=== PATIENT | male | born 1975 | race American Indian/Alaskan Native ===

== ENCOUNTER 2017-11-29 14:15 | Emergency (ER) | payer SELFPAY ==
[2017-11-29 15:14] VITALS: BP 123/87
--- NOTE | 2017-11-29 16:30 | Cat Scan Report ---
FINAL REPORT PROCEDURE: CT HEAD/BRAIN WO CON TECHNIQUE: Computerized tomography of the head was performed without contrast material. HISTORY: fall with head injury COMPARISON: None FINDINGS: Brain volume is age appropriate. There is no intra or extra-axial hemorrhage. There is no CT evident acute infarction. There is no remote infarct. There is no hydrocephalus. There is no gross mass lesion or leptomeningeal abnormality given limitation of lack of IV contrast. The skull base and calvarium are intact. Subtle chronic sinusitis is present most conspicuously of the maxillary sinuses. IMPRESSION: No CT evident acute intracranial process. Subtle chronic sinusitis.
--- NOTE | 2017-11-29 21:12 | XRay Report ---
FINAL REPORT PROCEDURE: XR SPINE LUMBOSACRAL 2-3V TECHNIQUE: Lumbar spine radiographs, frontal and lateral views. CPT 17809 HISTORY: fall COMPARISON: No prior studies are available for comparison. FINDINGS: Vertebral alignment and height are within normal limits. Narrowing of the intervertebral disc spaces identified at L5-S1. An acute fracture is not identified. Pre and paravertebral soft tissues are within normal limits. Incidental note is made of a grossly dilated loop of colon with a maximal diameter of 15 centimeters. Air-fluid levels are noted in this loop.. IMPRESSION: Degenerative disc disease at L5-S1. Grossly dilated bowel loop most likely represents a dilated sigmoid colon. CT scan is recommended for further evaluation.
== END 2017-11-30 03:30 | disposition left against medical advice (07) ==
LOC: ED 14:15
DX: R11.10 Vomiting, unspecified (principal); R51 Headache; M54.5 Low back pain; Z53.21 Procedure and treatment not carried out due to patient leaving prior to being seen by health care provider
CPT/HCPCS: 70450; 72100

== ENCOUNTER 2018-07-05 11:14 | Emergency (ER) | payer OTHER ==
[2018-07-05] MEDS ORDERED: NACL 0.9% 1000 ML 1,000 ML IV ONE (11:35)
[2018-07-05] MEDS ORDERED: SUBLIMAZE IV ONE (11:35)
[2018-07-05] MEDS ORDERED: ZOFRAN IV ONE (11:35)
[2018-07-05 11:50] LABS: Eosinophils # (Auto) 0.3 K/mm3 (0.0-0.4); Eosinophils % (Auto) 6.4 % (0.0-4.3); Hematocrit 41.7 % (35.5-45.6); Hemoglobin 13.8 gm/dl (11.8-15.2); Lymphocytes # (Auto) 1.1 K/mm3 (1.2-5.4); Mean Corpuscular HGB Conc 33 % (32-34); Mean Corpuscular Hemoglobin 27 pg (28-32); Mean Corpuscular Volume 82 fl (84-94); Monocytes # (Auto) 0.3 K/mm3 (0.0-0.8); Monocytes % (Auto) 8.3 % (0.0-7.3); Platelet Count 289 K/mm3 (140-440); Red Blood Count 5.06 M/mm3 (3.65-5.03); Red Cell Distribution Width 16.3 % (13.2-15.2)
[2018-07-05 12:01] LABS: INR 0.82 (0.87-1.13); Partial Thromboplastin Time 24.2 Sec. (24.2-36.6)
[2018-07-05 12:06] LABS: BUN/Creatinine Ratio 14; Blood Urea Nitrogen 13 mg/dL (9-20); Calcium 9.2 mg/dL (8.4-10.2); Hemolysis Index 2
[2018-07-05 12:22] VITALS: BP 104/60
--- NOTE | 2018-07-05 13:12 | Cat Scan Report ---
CT HEAD WITHOUT CONTRAST: HISTORY: Headache. TECHNIQUE: Sequential 2.5mm CT images. COMPARISON: 11/29/17. FINDINGS: Cerebral Parenchyma: Within normal limits. Cerebellum: Within normal limits. Brainstem: Within normal limits. Ventricles: Normal. Sella: Normal. Extra-axial spaces: Normal. Basal Cisterns: Normal. Intracranial Hemorrhage: None. Midline Shift: None. Calvarium: Normal. Sinuses: Normal. Mastoid Air Cells: Normal. Visualized Orbits: Normal. IMPRESSION: Cranial CT scan within normal limits.
--- NOTE | 2018-07-05 13:14 | Cat Scan Report ---
CT SCAN OF THE CERVICAL SPINE: HISTORY: Bilateral neck pain. TECHNIQUE: Contiguous 1.25 mm axial images of the cervical spine were obtained. Sagittal and coronal reformatted images. FINDINGS: There is normal alignment of the cervical spine. The body, pedicles and posterior ligaments appear normal. No evidence of fracture or subluxation is seen. The spinal canal appears normal. The prevertebral soft tissues appear normal. IMPRESSION: Unremarkable CT of the cervical spine. No acute process is noted.
--- NOTE | 2018-07-05 13:16 | Cat Scan Report ---
CT CHEST WITH CONTRAST: HISTORY: Back pain, 20 feet fall from ladder. COMPARISON: none. TECHNIQUE: Helical CT in 1.25mm intervals following IV contrast. Sagittal and coronal reformatted images. FINDINGS: Thyroid gland: Normal. Tracheobronchial tree: Normal. Esophagus: Normal. Heart: Normal. Pericardium: Normal. Mediastinum: Normal. Lung Wright: Normal. Pleural Spaces: Normal. Musculoskeletal: Normal. IMPRESSION: Unremarkable CT chest with contrast.
--- NOTE | 2018-07-05 13:17 | Cat Scan Report ---
CT SCAN OF THE THORACIC SPINE: HISTORY: Back pain, fall from ladder. TECHNIQUE: Contiguous 1.25 mm axial images of the thoracic spine were obtained. Sagittal and coronal reformatted images. FINDINGS: There is normal alignment of the thoracic spine. The body, pedicles and posterior ligaments appear normal. No evidence of fracture or subluxation is seen. The spinal canal appears normal. The prevertebral soft tissues appear normal. IMPRESSION: Unremarkable CT of the thoracic spine. No acute process is noted.
--- NOTE | 2018-07-05 13:20 | Cat Scan Report ---
CT ABDOMEN PELVIS WITH CONTRAST: HISTORY: Abdominal pain, 20 feet fall from ladder. COMPARISON: none. TECHNIQUE: Helical CT in 1.25mm intervals following IV contrast. Sagittal and coronal reconstructions. FINDINGS: Liver: Normal. Biliary system: Normal. Pancreas: Normal. Spleen: Normal. Kidneys/ureters/bladder: Normal. Adrenal glands: Normal. Aorta: Normal. Intestines: There is a very large amount of stool throughout the length of the colon and rectal vault. Fecal impaction should be considered. The small bowel loops and stomach are grossly normal. Appendix: Normal. Pelvic viscera: Normal. Ascites: None. Adenopathy: None. Musculoskeletal: Intact. Previous internal fixation of the right acetabulum and proximal right femur are noted. No acute fracture is appreciated. IMPRESSION: No acute injury is identified in the abdomen or pelvis. Severe fecal retention.
--- NOTE | 2018-07-05 13:22 | Cat Scan Report ---
CT SCAN OF THE LUMBAR SPINE: HISTORY: Back pain. TECHNIQUE: Contiguous 1.25 mm axial images of the lumbar spine were obtained. Sagittal and coronal reformatted images. FINDINGS: There is normal alignment of the lumbar spine. The body, pedicles and posterior ligaments appear normal. No evidence of fracture or subluxation is seen. Moderate degenerative disc disease is noted at L5-S1. The remaining levels are within normal limits. The spinal canal appears normal. The prevertebral soft tissues appear normal. IMPRESSION: Degenerative changes at L5-S1. No acute process is noted.
[2018-07-05 14:37] LABS: Bilirubin,Urine NEG (Negative); Blood,Urine NEG (Negative); Color,Urine Yellow (Yellow); Mucus,Urine FEW /HPF; Protein,Urine <15 mg/dL mg/dL (Negative); Urobilinogen,Urine < 2.0 mg/dL (<2.0)
[2018-07-05 14:41] LABS: RBC,Urine < 1.0 /HPF (0.0-6.0)
--- NOTE | 2018-07-05 14:55 | Emergency Department Report ---
HPI - General Chief Complaint: Fall Time Seen by Provider: 07/05/18 11:34 - HPI HPI: The patient is a 42-year-old male who presents for evaluation of headache and right hip pain, status post fall from a ladder. The patient states that 2 hours prior to arrival, he fell approximately 20 feet from a ladder while cleaning gutters. He states that he landed on his right side and reinjured his right shoulder. He also struck his head on the ground and complains of headache. He states that his headache is severe, throbbing in quality, constant since his fall. He states that his right hip pain is constant and severe as well, sharp in quality, exacerbated with attempted movement of the right leg at the hip joint, and radiating to the lower back. He also complains of mild aching chest pain and bilateral neck pain. He states that he did pass out for a short amount of time at the his fall as well. The patient denies neuro deficits, dyspnea, abdominal pain, genital pain, pain to the distal extremities, paresthesias, motor deficits, flank pain. ED Past Medical Hx - Surgical History Additional Surgical History: right thigh/hip replacement,blockage,colostomy bag as - Social History Smoking Status: Current Some Day Smoker Substance Use Type: Alcohol - Medications Home Medications: Home Medications Medication Instructions Recorded Confirmed Last Taken Type Ibuprofen [Motrin] 800 mg PO Q8HR PRN #15 tablet 07/05/18 Unknown Rx traMADol [Ultram 50 MG tab] 50 mg PO Q6HR PRN #15 tablet 07/05/18 Unknown Rx ED Review of Systems ROS: Stated complaint: RIGHT LEG PAIN Other details as noted in HPI Constitutional: denies: fever ENT: denies: throat reports neck pain Respiratory: denies: cough, shortness of breath Cardiovascular: reports : chest pain Endocrine: denies unexplained weight loss or gain Gastrointestinal: denies: abdominal pain, nausea Genitourinary: denies: dysuria Musculoskeletal: reports rt hip and low back pain denies: leg swelling Skin: denies: rash Neurological: reports headache Hematological/Lymphatic: denies: easy bleeding or easy bruising Psych: denies sadness or hopelessness Physical Exam - Physical Exam Vital Signs: Vital Signs 07/05/18 07/05/18 07/05/18 11:18 11:36 12:00 Temperature 98.1 F Pulse Rate 86 72 Respiratory 18 11 L Rate Blood Pressure 118/75 104/60 O2 Sat by Pulse 99 99 99 Oximetry 07/05/18 12:03 Temperature Pulse Rate Respiratory 18 Rate Blood Pressure O2 Sat by Pulse Oximetry Physical Exam: General: well-nourished, well-developed, no acute distress Head: Normocephalic, atraumatic Eyes: normal sclera ENT: Mucous membranes are pink and moist Neck: trachea midline, neck supple, No neck stiffness, no cervical adenopathy, bilateral trapezius and lower cervical paraspinal musculature tenderness to palpation present, no midline cervical spinous process tenderness Respiratory: Breath sounds equal bilaterally, no wheezing, rales, or rhonchi Cardio: S1 and S2 present, no murmurs, rubs, gallops, capillary refill is brisk Abdomen: Normoactive bowel sounds, soft abdomen, no rigidity, no guarding or rebound tenderness Chest WALL/Back: No tenderness to palpation of the chest wall, no crepitus, no paradoxical movement of the chest wall, no bruising or swelling to the chest wall, no CVA tenderness with percussion, Tenderness to palpation present to bilateral lower lumbar paraspinal musculature, pain is elicited with flexion at the right hip, normal active range of motion at the hip intact, no spinous step- off or obvious deformity, ipsi-lateral and contralateral straight leg raise tests are negative. On extremity testing, compartments are soft and pliable, no obvious gross motor strength deficit, 5+ motor strength, including extension of the great toe bilaterally, no muscular atrophy, spasticity, fasciculations, or clonus, no obvious gross sensation deficit including web space between 1st and 2nd toes, reflexes 2+ & symmetric on DTR testing at the knee and ankle joints, distal pulses intact. Musc: No pitting edema in the legs, right lateral hip tenderness to palpation present, ecchymosis and intact, no sensation motor deficits in the base bilaterally Skin: No rash Neuro: alert oriented x4, normal cognition, speech normal, PERRL, EOM intact, no facial drooping, no uvula or tongue deviation on protrusion, no deficit with rotation of neck or shoulder shrug, no obvious gross motor deficit in the upper or lower extremities with flexion or extension at the shoulder, elbow, wrist, hip, knee, or ankle bilaterally, no obvious gross sensation deficit to crude touch or 2 pt discrimination, 2+ symmetric reflexes on DTR testing, no coordination deficit with [id number] or [id number] testing, Babinski downgoing, Psych: Normal affect ED Course Vital Signs 07/05/18 07/05/18 07/05/18 11:18 11:36 12:00 Temperature 98.1 F Pulse Rate 86 72 Respiratory 18 11 L Rate Blood Pressure 118/75 104/60 O2 Sat by Pulse 99 99 99 Oximetry 07/05/18 12:03 Temperature Pulse Rate Respiratory 18 Rate Blood Pressure O2 Sat by Pulse Oximetry ED Medical Decision Making - Lab Data Result diagrams: 07/05/18 11:41 07/05/18 11:41 - Medical Decision Making The patient was seen and examined by myself. The patient is placed on a traffic monitor specialist and continuous pulse ox. On initial evaluation, the patient was found to be in no distress. Evaluation orders were placed. The patient is given IV fentanyl for his pain. CT scan of the head, cervical spine, thoracic spine, lumbar spine, chest, and abdomen and pelvis are unremarkable. Lab results are unrevealing as well. The patient was reevaluated and reported that their symptoms were markedly improved. The patient is stable for discharge with outpatient follow-up. The patient is given follow-up and return instructions. The patient expressed understanding and agreed with the plan. The patient is discharged in stable condition. Critical care attestation.: If time is entered above; I have spent that time in minutes in the direct care of this critically ill patient, excluding procedure time. ED Disposition Clinical Impression: Acute post-traumatic headache, not intractable, Neck pain, bilateral, Acute bilateral low back pain without sciatica, Acute right hip pain Fall from ladder Qualifiers: Encounter type: initial encounter Qualified Code(s): W11.XXXA - Fall on and from ladder, initial encounter Disposition: - TO HOME OR SELFCARE Is pt being admited?: No Does the pt Need Aspirin: No Condition: Stable Instructions: Low Back Strain (ED), Acute Headache (ED), Arthralgia (ED) Prescriptions: Ibuprofen [Motrin] 800 mg PO Q8HR PRN #15 tablet PRN Reason: Pain traMADol [Ultram 50 MG tab] 50 mg PO Q6HR PRN #15 tablet PRN Reason: Pain Referrals: PRIMARY CARE,MD [Primary Care Provider] - 3-5 Days [facility] [Outside] - 3-5 Days Time of Disposition: 14:36
--- NOTE | 2018-07-05 14:57 | XRay Report ---
RIGHT FEMUR: HISTORY: pain. AP and lateral views of the femur demonstrate normal mineralization and contours for this patient's age. Previous internal fixation of the proximal right femur is noted. No destructive changes are noted and the adjacent soft tissues are normal. IMPRESSION: No acute process.
--- NOTE | 2018-07-05 14:57 | XRay Report ---
AP PELVIS: HISTORY: pain. AP view of the pelvis shows normal pelvic contour and soft tissues. The hips are symmetric and within normal limits as are the sacroiliac joints. Previous internal fixation of the right acetabulum and proximal right femur are noted. IMPRESSION: Surgical changes. No acute pelvic injury is identified.
--- NOTE | 2018-07-05 14:57 | XRay Report ---
AP CHEST: HISTORY: chest pain AP view of the chest demonstrates a normal mediastinal and cardiac contour with clear lungs and normal bony and soft tissue structures. IMPRESSION: Unremarkable AP chest.
== END 2018-07-05 15:00 | disposition home or self-care (01) ==
LOC: ED 11:14
DX: G44.319 Acute post-traumatic headache, not intractable (principal); M54.2 Cervicalgia; M54.5 Low back pain; M25.551 Pain in right hip; F17.200 Nicotine dependence, unspecified, uncomplicated; W11.XXXA Fall on and from ladder, initial encounter; Y93.89 Activity, other specified; Y92.89 Other specified places as the place of occurrence of the external cause; Y99.8 Other external cause status
CPT/HCPCS: 36415; 70450; 71045; 71260; 72125; 72128; 72131; 72170; 73552; 74177; 80048; 81001; 82550; 84484; 85025; 85610; 85730; 93005; 93010; 96374; 96375; 99285; G0480; J2405; J3010; J7030; Q9967; 80320; 96361